=== PATIENT | female | born 1975 | race Caucasian/White ===

== ENCOUNTER → 2018-05-25 08:18 | Outpatient (CLI) | payer SELFPAY ==
--- NOTE | 2018-05-25 08:39 | US_ITS ---
STUDY: ABDOMINAL ULTRASOUND - RIGHT UPPER QUADRANT REASON FOR VISIT: Female, 42 years old. Epigastric pain. TECHNIQUE: Ultrasound evaluation of the right upper quadrant was performed with real-time and static molina-scale imaging. TECHNICAL QUALITY: Adequate. COMPARISON: CT dated June 28, 2009 FINDINGS: Liver: The liver measures 16.3 cm. There is normal echogenicity of the liver. The bile ducts are within normal limits. There is hepatic color flow. The direction of portal flow is hepatopetal. There is no demonstrated mass lesion. Gallbladder: Normal distended gallbladder. The gallbladder wall measures 2.7 mm. There is a negative sonographic Nieto's sign. There is no pericholecystic fluid. There are no gallstones. Common Bile Duct (C.B.D.): The common bile duct measures 3.7 mm. Pancreas: Normal size of the head, body and tail of the pancreas. There is normal echogenicity of the pancreas. There is no demonstrated pancreatic mass or cyst. Right Kidney: Normal size of the right kidney. The right kidney measures 9.5 cm in length. Normal renal cortex. There is no demonstrated renal mass or cyst. There is no right hydronephrosis. US/Abdomen Limited IMPRESSION: Within normal limits right upper quadrant ultrasound examination. Electronically Signed: Ksenia Rivers MD at 8:11 EDT Tel , Service support ,
== END ==
PROVIDERS: Family Provider Family Medicine; PCP Family Medicine; Referring Provider Nurse Practitioner Adult Health; Visit Provider Nurse Practitioner Adult Health
DX: R11.0 Nausea (principal)
CPT/HCPCS: 76705

== ENCOUNTER → 2018-05-28 09:49 | Outpatient (CLI) | payer SELFPAY ==
--- NOTE | 2018-05-28 09:54 | NM_ITS ---
CLINICAL: 42-year-old female with reported history of right upper quadrant abdominal pain and nausea. RADIONUCLIDE HEPATOBILIARY SCINTIGRAPHY COMPARISON: Abdominal ultrasound report 05/25/2018 FINDINGS: Following the intravenous administration of 5.4 mCi of 99m Tc Mebrofenin, hepatobiliary images reveal: 1. Relatively prompt and homogeneous radiopharmaceutical concentration is noted by a normal sized liver. No parenchymal defects are identified. 2. Gallbladder activity is identified at 15 minutes post radiopharmaceutical administration. 3. Small intestinal tract is observed at 10 minutes following tracer injection. 4. Washout of the radiopharmaceutical by the hepatic parenchyma appears qualitatively normal. Cholecystokinin (0.02 ug/kg) was administered intravenously over a 30-minute period. The post CCK gallbladder ejection fraction calculated at 20 minutes following Cholecystokinin administration was noted to be 68.0 % (normal greater than 35%). During 30 minutes of post CCK imaging, there is no scintigraphic evidence of reflux of the radiotracer into the common hepatic duct or refilling of the gallbladder. OR/Hepatobilliary Img w/Pharm Int IMPRESSION: 1. NORMAL 99m Tc Mebrofenin hepatobiliary imaging examination with Cholecystokinin. A. A gallbladder ejection fraction calculated to be greater than 35% following the administration of Cholecystokinin makes the probability of functional hepatobiliary disease (gallbladder and/or sphincter of Oddi dyskinesia) and/or organic hepatobiliary disease (chronic acalculous cholecystitis and/or cystic duct syndrome) to be low. (Munira Rivero et al, Journal of Nuclear Medicine 32:1695, 1990). Electronically Signed: Prosper Long DO at 8:26 EDT Tel , Service support ,
== END ==
PROVIDERS: Family Provider Family Medicine; PCP Family Medicine; Referring Provider Family Medicine; Visit Provider Family Medicine
DX: R11.0 Nausea (principal)
CPT/HCPCS: 78227; A9537; J2805

== ENCOUNTER → 2019-01-13 13:24 | Outpatient (CLI) | payer SELFPAY ==
[2019-01-18 20:33] LABS: HPV Reflexed? NOT INDICATED
== END ==
PROVIDERS: Family Provider Family Medicine; PCP Family Medicine; Visit Provider Obstetrics & Gynecology
DX: Z12.4 Encounter for screening for malignant neoplasm of cervix (principal)
CPT/HCPCS: 88175; G0145

== ENCOUNTER → 2019-09-23 16:20 | Outpatient (CLI) | payer SELFPAY ==
[2019-09-23 17:43] LABS: Thyroid Stim Hormone (TSH) 1.25 uIU/mL (0.358-3.74)
== END ==
PROVIDERS: PCP Family Medicine; Referring Provider Family Medicine; Visit Provider Family Medicine
DX: F41.9 Anxiety disorder, unspecified (principal)
CPT/HCPCS: 36415; 84443

== ENCOUNTER → 2019-12-28 | Outpatient (CLI) | payer SELFPAY | END | disposition home or self-care (01) | PROVIDERS: PCP Family Medicine; Referring Provider Family Medicine; Visit Provider Family Medicine | DX: R50.9 Fever, unspecified (principal) | CPT/HCPCS: 87635; U0003 ==

== ENCOUNTER → 2022-01-02 | Outpatient (CLI) | payer SELFPAY ==
[2022-01-10 15:16] LABS: HPV Reflexed? NOT INDICATED
== END | disposition home or self-care (01) ==
LOC: LABSPEC 01-03 09:18
PROVIDERS: PCP Family Medicine; Visit Provider Obstetrics & Gynecology
DX: Z12.4 Encounter for screening for malignant neoplasm of cervix (principal)
CPT/HCPCS: 88175; G0145

== ENCOUNTER 2022-12-20 19:39 | Emergency (ER) | payer BC, SELFPAY ==
[2022-12-20 19:39] VITALS: BP 135/75; PULSE 82; RESP 15; TEMP 36.2; O2SAT 100
[2022-12-20] MEDS: Diphth,Pertuss(Acell),Tet Vac 0.5 ML Vial IM (20:06)
--- NOTE | 2022-12-20 20:07 | EDS_ITS ---
HPI <VANDANA Muñoz - Last Filed: 12/20/22 20:43> History of Present Illness Chief Complaint: Laceration Narrative Narrative: Patient presenting today with a laceration above her right eyebrow that she got earlier today. She reports that her dog jumped on her and caused her glasses to hit it against her face and cut her. Her tetanus has not been updated for over 10 years. She denies any other injury, she is not on any blood thinners. Tetanus Immunization: >10 years [facility] <VANDANA Muñoz - Last Filed: 12/20/22 20:43> [facility] Allergy/AdvReac Type Severity Reaction Status Date / Time No Known Allergies Allergy Verified 12/20/22 19:43 Social History Smoking Status: Smoker, status unknown ROS <VANDANA Muñoz - Last Filed: 12/20/22 20:43> ROS ED Constitutional Constitutional ED: Denies chills or fever(s) Cardiovascular Cardiovascular: Denies chest pain Respiratory/Chest Respiratory/Chest: Denies cough or dyspnea Gastrointestinal Gastrointestinal: Denies abdominal pain, nausea or vomiting Musculoskeletal Musculoskeletal: Denies arthralgias or myalgias Integumentary Reports laceration EXAM <VANDANA Muñoz - Last Filed: 12/20/22 20:43> Physical Exam Const Vital Signs: 12/20/22 19:39 12/20/22 20:14 Temperature 97.2 F L Temperature Source Temporal Pulse Rate 82 74 Respiratory Rate 15 16 Blood Pressure 135/75 H 135/74 H Blood Pressure Mean 95 94 Pulse Ox 100 97 Oxygen Delivery Method Room Air Positive well nourished, well developed and no apparent distress General Appearance ED: well developed HEENT Reports normocephalic and head/scalp atraumatic Mouth ED: Yes moist mucous membranes normal Eyes PERRL and EOMs intact bilaterally Neck full ROM and supple Chest Wall inspection of chest normal Resp normal respiratory effort and clear to auscultation bilaterally Cardio regular rate and regular rhythm GI soft to palpation, non-tender, non-distended and no masses Back/Spine normal ROM and normal to inspection Extremity normal to inspection and full ROM Neuro oriented x3, CN's II-XII intact bilaterally, moves all extremities, no focal motor deficits and no sensory deficits noted Sensorium / Orientation: awake and alert Psych mental status grossly normal and thought process normal Skin Skin Narrative: 1.5 inch linear laceration just above the right eyebrow. Rashes: No rashes noted <Dr. Kaleb Storm MD - Last Filed: 12/20/22 20:11> Physical Exam Const Vital Signs: 12/20/22 19:39 12/20/22 20:14 Temperature 97.2 F L Temperature Source Temporal Pulse Rate 82 74 Respiratory Rate 15 16 Blood Pressure 135/75 H 135/74 H Blood Pressure Mean 95 94 Pulse Ox 100 97 Oxygen Delivery Method Room Air MDM <VANDANA Muñoz - Last Filed: 12/20/22 20:43> MDM MDM Narrative Medical decision making narrative: Patient presenting today with a laceration, tetanus does need to be updated and will be updated here. 1.5 inch laceration, medial aspect above the right eyebrow. This was cleaned and closed with Dermabond. Steri-Strips were then applied. She has been educated on signs of infection to look out for and reasons to return. She is to follow-up with her PCP. She will be discharged home in stable condition and is comfortable with plan. I have personally performed a face to face assessment of the patient and have reviewed the NURIA Note. I performed a substantive portion of the visit including all aspects of the following. My plunkett findings include: History is [47-year-old female with medial right eyebrow laceration when her dog jumped up and hit her glasses causing the laceration. No other injuries. Tetanus is probably at least 11 years old and will need to be updated.] Exam is [well-appearing 47-year-old female. Vital signs stable afebrile. H EENT exam she is about 1.5 inch laceration that is linear on the medial aspect of her right eyebrow and above it. It will need repaired. Minimal bleeding. Able to open close her eyes. No other injuries to her head. Lungs are clear. Heart regular rhythm. Chest wall nontender. Abdomen soft nontender. Moving all 4 extremities. Normal strength. Normal range of motion. Nontender no deformity. Neurologically she is awake and alert.] Medical Decision Making [patient and I discussed treatment options. She preferred not to have sutures. I do believe Steri-Strips did work well. Area was cleaned. Explored. Closed using Dermabond. And then Steri-Strips. They were instructed on wound care.] Other additions or changes: [None] <Dr. Kaleb Storm MD - Last Filed: 12/20/22 20:11> [facility] MDM Narrative Medical decision making narrative: I have personally performed a face to face assessment of the patient and have reviewed the NURIA Note. I performed a substantive portion of the visit including all aspects of the following. My plunkett findings include: History is [47-year-old female with medial right eyebrow laceration when her dog jumped up and hit her glasses causing the laceration. No other injuries. Tetanus is probably at least 11 years old and will need to be updated.] Exam is [well-appearing 47-year-old female. Vital signs stable afebrile. H EENT exam she is about 1.5 inch laceration that is linear on the medial aspect of her right eyebrow and above it. It will need repaired. Minimal bleeding. Able to open close her eyes. No other injuries to her head. Lungs are clear. Heart regular rhythm. Chest wall nontender. Abdomen soft nontender. Moving all 4 extremities. Normal strength. Normal range of motion. Nontender no deformity. Neurologically she is awake and alert.] Medical Decision Making [patient and I discussed treatment options. She preferred not to have sutures. I do believe Steri-Strips did work well. Area was cleaned. Explored. Closed using Dermabond. And then Steri-Strips. They were instructed on wound care.] Other additions or changes: [None] Discharge Plan Triage Chief Complaint: Laceration ED Midlevel Provider: Katy Georges ED Provider: Kaleb Storm Dx/Rx/DC Orders Clinical Impression: Laceration Instructions: ED Laceration: All Closures Primary Care Provider: Chucho Self Referrals: Chucho Self MD [Primary Care Provider] - 5-7 Days Activity Restrictions/Additional Instructions: Follow-up with your PCP, return for any worsening of your symptoms. Disposition Disposition: Home, Self Care Discharge Date/Time: 12/20/22 20:20
[2022-12-20 20:14] VITALS: BP 135/74; PULSE 74; RESP 16; O2SAT 97
== END 2022-12-20 20:20 | disposition home or self-care (01) ==
LOC: ED 20:14
PROVIDERS: Emergency Provider Emergency Medicine; PCP Family Medicine; Visit Provider Emergency Medicine
DX: S01.111A Laceration without foreign body of right eyelid and periocular area, initial encounter (principal); Z23 Encounter for immunization; X58.XXXA Exposure to other specified factors, initial encounter
CPT/HCPCS: 12011; 90471; 90715; 99283